=== PATIENT | male | born 1980 | race Caucasian/White ===

== ENCOUNTER 2018-05-03 13:35 | Emergency (ER) | payer OTHER ==
--- NOTE | 2018-05-03 14:01 | EDM.PDOC ---
ED HPI GENERAL MEDICAL PROBLEM - General Chief Complaint: Upper Extremity Injury/Pain Stated Complaint: LEFT HAND INJURY Time Seen by Provider: 05/03/18 13:35 Source of Information: Reports: Patient History Limitations: Reports: No Limitations - History of Present Illness INITIAL COMMENTS - FREE TEXT/NARRATIVE: 37 YO WM presents to ER with laceration to left hand. Pt reports he was working and accidentally put the dorsal surface of left hand against a grinding wheel. Pt reports no functional deficit noted. Pt able to move hand and wrist through active range of motion. Pt denies any pain and bleeding is controlled. Pt denies any numbness around wound or distal to wound. 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) - Related Data Allergies Allergy/AdvReac Type Severity Reaction Status Date / Time Penicillins Allergy Stomach Verified 05/03/18 13:46 Upset Tetanus Vaccines and Toxoid Allergy Anaphylactic Verified 05/03/18 13:46 Shock Home Meds: Home Meds Armodafinil [Nuvigil] 200 mg PO DAILY 05/03/18 [History] Sertraline [Zoloft] 50 mg PO DAILY 05/03/18 [History] Review of Systems - Review of Systems Review Of Systems: See Below Constitutional: Reports: No Symptoms Eyes: Reports: No Symptoms Ears: Reports: No Symptoms Nose: Reports: No Symptoms Mouth/Throat: Reports: No Symptoms Respiratory: Reports: No Symptoms Cardiovascular: Reports: No Symptoms GI/Abdominal: Reports: No Symptoms Genitourinary: Reports: No Symptoms Musculoskeletal: Reports: No Symptoms Skin: Reports: Wound (3cm laceration to dorsal aspect of left hand) Neurological: Reports: No Symptoms Psychiatric: Reports: No Symptoms ED EXAM, GENERAL - Physical Exam Exam: See Below Exam Limited By: No Limitations General Appearance: Alert, WD/WN, No Apparent Distress Head: Atraumatic, Normocephalic Neck: Normal Inspection, Supple, Non-Tender, Full Range of Motion Respiratory/Chest: No Respiratory Distress, Lungs Clear, Normal Breath Sounds, No Accessory Muscle Use, Chest Non-Tender Cardiovascular: Normal Peripheral Pulses, Regular Rate, Rhythm, No Edema, No Gallop, No JVD, No Murmur, No Rub GI/Abdominal: Normal Bowel Sounds, Soft, Non-Tender, No Organomegaly, No Distention, No Abnormal Bruit, No Mass Back Exam: Normal Inspection, Full Range of Motion, NT Extremities: Other (3cm laceration to dorsal aspect of left hand) Neurological: Alert, Oriented, CN II-XII Intact, Normal Cognition, Normal Gait, Normal Reflexes, No Motor/Sensory Deficits Psychiatric: Normal Affect, Normal Mood Skin Exam: Warm, Dry, Intact, Normal Color, No Rash Lymphatic: No Adenopathy ED TRAUMA EXTREMITY PROCEDURES - Laceration/Wound Repair Left Posterior Hand Lac/Wound Length In cm: 3 Appearance: Superficial Distal NVT: Neuro & Vascular Intact Anesthetic Type: Local Local Anesthesia - Lidocaine (Xylocaine): 1% Plain Local Anesthetic Volume: 5cc Skin Prep: Providone-Iodine (Betadine), Saline Exploration/Debridement/Repair: Wound Explored, In a Bloodless Field, Explored to Base Closed With: Sutures Suture Size: 4-0 # of Sutures: 3 Sterile Dressing Applied: Provider Tetanus Status Addressed: Yes Complications: No Course - Vital Signs Last Recorded V/S: Last Vital Signs Temp 36.9 C 05/03/18 13:37 Pulse 70 05/03/18 13:37 Resp 18 05/03/18 13:37 BP 155/86 H 05/03/18 13:37 Pulse Ox 96 05/03/18 13:37 - Orders/Labs/Meds Meds: Medications Discontinued Medications Generic Name Dose Route Start Last Admin Trade Name [place] PRN Reason Stop Dose Admin Lidocaine HCl Confirm 05/03/18 13:45 Xylocaine 1% Administered 05/03/18 13:46 Dose 20 ml .ROUTE .STK-MED ONE Departure - Departure Time of Disposition: 14:03 Disposition: Home, Self-Care 01 Condition: Good Clinical Impression: Laceration of left hand Qualifiers: Encounter type: initial encounter Foreign body presence: without foreign body Qualified Code(s): S61.412A - Laceration without foreign body of left hand, initial encounter - Discharge Information Instructions: Laceration Care, Adult, [id number], Stitches, Shelbie, or Adhesive Wound Closure, [id number] Forms: ED Department Discharge Additional Instructions: 1. wound care instructions given 2. suture removal 7-10 days 3. return to ER for worsening symptoms 4. follow up in clinic for suture removal - Assessment/Plan Assessment:: 1. 3cm laceration to dorsal aspect of left hand Plan: 1. wound care instructions given 2. suture removal 7-10 days 3. return to ER for worsening symptoms 4. follow up in clinic for suture removal
[2018-05-03] MEDS: Lidocaine 1% 20 ML MDV ONE (14:45)
[2018-05-03] MEDS: Lidocaine 1% 20 ML MDV INJECT ONE (14:45)
== END 2018-05-03 14:10 | disposition home or self-care (01) ==
LOC: KA.ED 13:35
DX: S61.412A Laceration without foreign body of left hand, initial encounter (principal); F17.210 Nicotine dependence, cigarettes, uncomplicated; Z88.0 Allergy status to penicillin; Z88.7 Allergy status to serum and vaccine; W31.9XXA Contact with unspecified machinery, initial encounter
CPT/HCPCS: 12002; 99283